=== PATIENT | male | born 1930 | race Caucasian/White ===

== ENCOUNTER 2016-08-03 09:04 | Inpatient (IN) | payer MEDICARE, BC ==
[2016-08-03] MEDS ORDERED: Sodium Chloride 0.9% 10 ML Syringe FLUSH PRN (09:48)
--- NOTE | 2016-08-03 09:55 | EDM.PDOC ---
ED HPI GENERAL MEDICAL PROBLEM - General Chief Complaint: General Stated Complaint: FALL VIA [place] Time Seen by Provider: 08/03/16 09:40 Source of Information: Reports: Family, Old Records History Limitations: Reports: Other (Dementia) - History of Present Illness INITIAL COMMENTS - FREE TEXT/NARRATIVE: 86 yo male was found on the floor today by family and EMS was called and transported. Has dementia and has been living with a sister who is now herself in the hospital. A brother is recently working on getting both of them into a [facility]. There is no known injury from ending up on the floor today, the fall was not witnessed. Brother was able to secure a [facility] bed for [place] beginning this coming Monday. Onset: Today Onset Date: 08/03/16 Duration: Other (not known) Location: Reports: Generalized (weakness) Severity: Moderate Improves with: Reports: None Worsens with: Reports: Other (time) Associated Symptoms: Reports: Confusion, Rash (redness to skin of R leg), Weakness Treatments M[employer] OR [employer] DIRECTOR: Reports: IV/IO, Other (see below) (none) - Related Data Allergies Allergy/AdvReac Type Severity Reaction Status Date / Time Sulfa (Sulfonamide Allergy Intermediate intestines Verified 08/04/15 14:30 Antibiotics) swelled and got hard as rock zocor Allergy Other Uncoded 08/03/16 09:24 Home Meds: Home Meds Aspirin 81 mg PO DAILY 11/28/12 [History] Furosemide 20 mg PO DAILY 11/28/12 [History] Isosorbide Mononitrate [Imdur] 120 mg PO DAILY 11/28/12 [History] Metoprolol Tartrate [Lopressor] 25 mg PO BID 11/28/12 [History] Niacin [Niaspan] 1,000 mg PO DAILY 11/28/12 [History] Nitroglycerin 0.4 mg PO ASDIRECTED PRN 11/28/12 [History] Pantoprazole [ProTONIX] 40 mg PO DAILY 11/28/12 [History] Folic Acid 0.4 mg PO DAILY 08/03/16 [History] Pantoprazole [ProTONIX] 40 mg PO ACBREAKFAST 08/03/16 [History] Pravastatin Sodium [Pravastatin (Pravachol)] 40 mg PO BEDTIME 08/03/16 [History] Terazosin [Hytrin] 2 mg PO BEDTIME 08/03/16 [History] Past Medical History HEENT History: Reports: Hard of Hearing, Impaired Vision, Other (See Below) Other HEENT History: oral dysphagia Cardiovascular History: Reports: Angina, CAD, Heart Failure, High Cholesterol, Hypertension Gastrointestinal History: Reports: Chronic Constipation Genitourinary History: Reports: Prostate Disorder Other Genitourinary History: frequency Musculoskeletal History: Reports: Other (See Below) Other Musculoskeletal History: arthritis, weakness of bilat legs Neurological History: Reports: Alzheimers Disease, Other (See Below) Other Neuro History: narcolepsy, spinal stenosis of lumabr spine Psychiatric History: Reports: Dementia 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 Dermatologic History: Reports: Chronic Cellulitis, Venous Stasis Dermatitis - Infectious Disease History Infectious Disease History: Reports: Chicken Pox - Past Surgical History Cardiovascular Surgical History: Reports: Carotid Stents, Coronary Artery Bypass GI Surgical History: Reports: Hernia Repair/Other Social & Family History - Tobacco Use Smoking Status *Q: Never Smoker Second Hand Smoke Exposure: No - Caffeine Use Caffeine Use: Reports: Coffee - Recreational Drug Use Recreational Drug Use: No ED ROS GENERAL - Review of Systems Review Of Systems: Unable To Obtain (due to dementia) ED EXAM, GENERAL - Physical Exam Exam: See Below Exam Limited By: No Limitations General Appearance: Alert, WD/WN, No Apparent Distress, Other (non-verbal ) Eye Exam: Bilateral Eye: EOMI, Normal Inspection, PERRL Ears: Normal External Exam, Normal Canal, Normal TMs Ear Exam: Bilateral Ear: Auricle Normal, Canal Normal, TM normal Nose: Normal Inspection, Normal Mucosa, No Blood Throat/Mouth: Normal Inspection, Normal Lips, Normal Oropharynx, Normal Voice, No Airway Compromise, Other (Teeth in very poor condition with poor hygiene) Head: Atraumatic, Normocephalic Neck: Normal Inspection, Non-Tender Respiratory/Chest: No Respiratory Distress, Lungs Clear, Normal Breath Sounds, No Accessory Muscle Use Cardiovascular: Regular Rate, Rhythm, No Edema, Systolic Murmur GI/Abdominal: Normal Bowel Sounds, Soft, Non-Tender, No Distention Back Exam: Normal Inspection Extremities: Normal Inspection, Normal Range of Motion, Non-Tender, No Pedal Edema Neurological: Alert, Oriented, CN II-XII Intact, Normal Cognition, No Motor/ Sensory Deficits Psychiatric: Normal Affect, Normal Mood Skin Exam: Warm, Dry, Intact, Erythema (to skin of R leg, increased warmth.), Increased Warmth Lymphatic: No Adenopathy Course - Vital Signs Text/Narrative:: Dr. Hickey called at 11:30 am regarding recommended admission. Last Recorded V/S: Last Vital Signs Temp 36.7 C 08/03/16 09:11 Pulse 74 08/03/16 10:32 Resp 16 08/03/16 10:32 BP 151/83 H 08/03/16 10:32 Pulse Ox 99 08/03/16 10:32 - Orders/Labs/Meds Orders: Active Orders 24 hr Category Date Time Status CULTURE BLOOD [BC] Stat Lab 08/03/16 10:45 Received CULTURE BLOOD [BC] Stat Lab 08/03/16 10:50 Received UA W/MICROSCOPIC [URIN] Stat Lab 08/03/16 09:48 Uncollected Lactated Ringers [Ringers, Lactated] 1,000 ml Med 08/03/16 10:34 Active IV BOLUS Sodium Chloride 0.9% [Saline Flush] Med 08/03/16 09:48 Active 10 ml FLUSH ASDIRECTED PRN Saline Lock Insert [OM.PC] Routine Oth 08/03/16 09:48 Ordered Medication Orders Lactated Ringer's (Ringers, Lactated) 1,000 mls @ 1,000 mls/hr IV BOLUS ONE Stop: 08/03/16 11:33 Last Admin: 08/03/16 10:39 Dose: 1,000 mls/hr Sodium Chloride (Saline Flush) 10 ml FLUSH ASDIRECTED PRN PRN Reason: Keep Vein Open Last Admin: 08/03/16 10:10 Dose: 10 ml Labs: Laboratory Tests 08/03/16 08/03/16 Range/Units 09:58 09:58 WBC 13.1 H (4.5-11.0) K/uL RBC 3.40 L (4.30-5.90) M/uL Hgb 10.0 L D (12.0-15.0) g/dL Hct 32.4 L (40.0-54.0) % MCV 95 (80-98) fL MCH 29 (27-31) pg MCHC 31 L (32-36) % Plt Count 94 L (150-400) K/uL Sodium 144 (140-148) mmol/L Potassium 4.3 (3.6-5.2) mmol/L Chloride 109 H (100-108) mmol/L Carbon Dioxide 26 (21-32) mmol/L Anion Gap 13.3 (5.0-14.0) mmol/L BUN 36 H (7-18) mg/dL Creatinine 1.6 H (0.8-1.3) mg/dL Est Cr Clr Drug Dosing 35.70 mL/min Estimated GFR (MDRD) 41 L (>60) Glucose 128 H (74-106) mg/dL Calcium 8.9 (8.5-10.1) mg/dL Total Bilirubin 0.9 (0.2-1.0) mg/dL AST 42 H (15-37) U/L ALT 33 (12-78) U/L Alkaline Phosphatase 75 (46-116) U/L Total Protein 6.7 (6.4-8.2) g/dL Albumin 2.7 L (3.4-5.0) g/dL Globulin 4.0 H (2.3-3.5) g/dL Albumin/Globulin Ratio 0.7 L (1.2-2.2) Meds: Medications Generic Name Dose Route Start Last Admin Trade Name Freq PRN Reason Stop Dose Admin Lactated Ringer's 1,000 mls @ 1,000 mls/hr 08/03/16 10:34 08/03/16 10:39 Ringers, Lactated IV 08/03/16 11:33 1,000 mls/hr BOLUS ONE Administration Sodium Chloride 10 ml 08/03/16 09:48 08/03/16 10:10 Saline Flush FLUSH 10 ml ASDIRECTED PRN Administration Keep Vein Open Discontinued Medications Generic Name Dose Route Start Last Admin Trade Name Freq PRN Reason Stop Dose Admin Doxycycline Hyclate 100 mg 08/03/16 10:51 08/03/16 11:02 Vibramycin PO 08/03/16 10:52 100 mg ONETIME ONE Administration Ceftriaxone Sodium 2 gm/ 50 mls @ 100 mls/hr 08/03/16 10:52 Sodium Chloride IV 08/03/16 11:21 ONETIME ONE Departure - Departure Time of Disposition: 11:55 Disposition: Admitted As Inpatient 65 Condition: fair Clinical Impression: Cellulitis of right leg, Mild dehydration, Weakness Dementia Qualifiers: Dementia type: unspecified type Dementia behavioral disturbance: without behavioral disturbance Qualified Code(s): F03.90 - Unspecified dementia without behavioral disturbance Anemia Qualifiers: Anemia type: unspecified type Qualified Code(s): D64.9 - Anemia, unspecified - Discharge Information Forms: ED Department Discharge - My Orders Last 24 Hours: My Active Orders 08/03/16 09:48 UA W/MICROSCOPIC [URIN] Stat Sodium Chloride 0.9% [Saline Flush] 10 ml FLUSH ASDIRECTED PRN Saline Lock Insert [OM.PC] Routine 08/03/16 10:34 Lactated Ringers [Ringers, Lactated] 1,000 ml IV BOLUS 08/03/16 10:45 CULTURE BLOOD [BC] Stat 08/03/16 10:50 CULTURE BLOOD [BC] Stat - Assessment/Plan Last 24 Hours: My Active Orders 08/03/16 09:48 UA W/MICROSCOPIC [URIN] Stat Sodium Chloride 0.9% [Saline Flush] 10 ml FLUSH ASDIRECTED PRN Saline Lock Insert [OM.PC] Routine 08/03/16 10:34 Lactated Ringers [Ringers, Lactated] 1,000 ml IV BOLUS 08/03/16 10:45 CULTURE BLOOD [BC] Stat 08/03/16 10:50 CULTURE BLOOD [BC] Stat
[2016-08-03] MEDS ORDERED: Lactated Ringers 1,000 ML IV ONE (10:34)
[2016-08-03] MEDS ORDERED: Doxycycline 100 MG Cap PO ONE (10:51)
[2016-08-03] MEDS ORDERED: cefTRIAXone 2 GM in Sodium Chloride 0.9% 50 ML IV ONE (10:52)
--- NOTE | 2016-08-03 14:56 | PCM.HP ---
H&P History of Present Illness - General Date of Service: 08/03/16 Admit Problem/Dx: Admission Diagnosis/Problem Admission Diagnosis/Problem Cellulitis Source of Information: Provider. No: Patient History Limitations: Reports: Altered Mental Status (dementia) - History of Present Illness Initial Comments - Free Text/Narative: Bill presents today after being found laying on the ground near the shower. It is unclear how long he was on the ground. He has advanced dementia and does not provide any history. No one has seen him in 24 hours other not quite sure what has happened during that time. He does not respond to any questions unable to gather any history. He does not even respond to questions about how he is doing right now such as are you having pain. His brother does report that he has not been doing well at home. He's been having difficulty with both bowel and bladder incontinence. Has not been eating well. Weakness seems to be progressing. He requires constant supervision because of his Alzheimer's dementia. Workup in the emergency room today suggested probable acute kidney injury. There is a large area of cellulitis on the right lower leg with blistering and ulceration. He is not safe for outpatient management and will need IV antibiotics and likely penitentiary placement. - Related Data Allergies/Adverse Reactions: Allergies Allergy/AdvReac Type Severity Reaction Status Date / Time Sulfa (Sulfonamide Allergy Intermediate intestines Verified 08/04/15 14:30 Antibiotics) swelled and got hard as rock zocor Allergy Other Uncoded 08/03/16 09:24 Home Medications: Home Meds Aspirin 81 mg PO DAILY 11/28/12 [History] Furosemide 20 mg PO DAILY 11/28/12 [History] Isosorbide Mononitrate [Imdur] 120 mg PO DAILY 11/28/12 [History] Metoprolol Tartrate [Lopressor] 25 mg PO BID 11/28/12 [History] Niacin [Niaspan] 1,000 mg PO DAILY 11/28/12 [History] Nitroglycerin 0.4 mg PO ASDIRECTED PRN 11/28/12 [History] Pantoprazole [ProTONIX] 40 mg PO DAILY 11/28/12 [History] Folic Acid 0.4 mg PO DAILY 08/03/16 [History] Pantoprazole [ProTONIX] 40 mg PO ACBREAKFAST 08/03/16 [History] Pravastatin Sodium [Pravastatin (Pravachol)] 40 mg PO BEDTIME 08/03/16 [History] Terazosin [Hytrin] 2 mg PO BEDTIME 08/03/16 [History] Past Medical History HEENT History: Reports: Hard of Hearing, Impaired Vision, Other (See Below) Other HEENT History: oral dysphagia Cardiovascular History: Reports: Angina, CAD, Heart Failure, High Cholesterol, Hypertension Gastrointestinal History: Reports: Chronic Constipation Genitourinary History: Reports: Prostate Disorder Other Genitourinary History: frequency Musculoskeletal History: Reports: Other (See Below) Other Musculoskeletal History: arthritis, weakness of bilat legs Neurological History: Reports: Alzheimers Disease, Other (See Below) Other Neuro History: narcolepsy, spinal stenosis of lumabr spine Psychiatric History: Reports: Dementia 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 Dermatologic History: Reports: Chronic Cellulitis, Venous Stasis Dermatitis - Infectious Disease History Infectious Disease History: Reports: Chicken Pox - Past Surgical History Cardiovascular Surgical History: Reports: Carotid Stents, Coronary Artery Bypass GI Surgical History: Reports: Hernia Repair/Other Social & Family History - Family History Family Medical History: Unobtainable (dementia) - Tobacco Use Smoking Status *Q: Never Smoker Second Hand Smoke Exposure: No - Caffeine Use Caffeine Use: Reports: Coffee - Alcohol Use Alcohol Use History: No - Recreational Drug Use Recreational Drug Use: No H&P Review of Systems - Review of Systems: Review Of Systems: Unable To Obtain (pt does not respond to any questions) Exam - Exam Exam: See Below - Vital Signs Vital Signs: Last Vital Signs Temp 36.7 C 08/03/16 09:11 Pulse 74 08/03/16 13:45 Resp 16 08/03/16 13:45 BP 154/77 H 08/03/16 13:45 Pulse Ox 99 08/03/16 13:45 Weight: 91.5 kg - Exam Quality Assessment: No: Supplemental Oxygen General: Alert, Cooperative, Mild Distress. No: Oriented HEENT: Conjunctiva Clear (on the left), Other (right eye shut 2/2 crusty drainage). No: Mucosa Moist & [place] (very dry), Scleral Icterus Neck: Trachea Midline. No: Lymphadenopathy, Thyromegaly Lungs: Clear to Auscultation, Normal Respiratory Effort Cardiovascular: Regular Rate, Regular Rhythm. No: Systolic Murmur Abdomen: Normal Bowel Sounds, Soft. No: Distention, Tenderness, Mass Back Exam: Normal Inspection. No: Paraspinal Tenderness Extremities: Edema (pitting edema right foot and ankle, mild edema left ankle). No: Normal Inspection, Cyanosis Skin: Warm, Dry, Rash (erythema right foot, ankle and distal lower leg. also area of redness and warmth just proximal to the knee medially. ) Neuro Extensive - Mental Status: Alert, Inattentive, Memory Loss-Remote Events, Memory Loss-Recent Events, Slow Response to Commands. No: Oriented x3, Normal Cognition, Memory Intact Neuro Extensive - Motor, Sensory, Reflexes: CN II-XII Intact, Tremor. No: Dysarthria, Abnormal Motor Psychiatric: Alert. No: Normal Affect (flat) - Patient Data Lab Results last 24 hrs: Laboratory Results - last 24 hr 08/03/16 08/03/16 08/03/16 Range/Units 09:58 09:58 13:46 WBC 13.1 H (4.5-11.0) K/uL RBC 3.40 L (4.30-5.90) M/uL Hgb 10.0 L D (12.0-15.0) g/dL Hct 32.4 L (40.0-54.0) % MCV 95 (80-98) fL MCH 29 (27-31) pg MCHC 31 L (32-36) % Plt Count 94 L (150-400) K/uL Sodium 144 (140-148) mmol/L Potassium 4.3 (3.6-5.2) mmol/L Chloride 109 H (100-108) mmol/L Carbon Dioxide 26 (21-32) mmol/L Anion Gap 13.3 (5.0-14.0) mmol/L BUN 36 H (7-18) mg/dL Creatinine 1.6 H (0.8-1.3) mg/dL Est Cr Clr Drug Dosing 35.70 mL/min Estimated GFR (MDRD) 41 L (>60) Glucose 128 H (74-106) mg/dL Calcium 8.9 (8.5-10.1) mg/dL Total Bilirubin 0.9 (0.2-1.0) mg/dL AST 42 H (15-37) U/L ALT 33 (12-78) U/L Alkaline Phosphatase 75 (46-116) U/L Total Protein 6.7 (6.4-8.2) g/dL Albumin 2.7 L (3.4-5.0) g/dL Globulin 4.0 H (2.3-3.5) g/dL Albumin/Globulin Ratio 0.7 L (1.2-2.2) Urine Color Yellow Urine Appearance Slightly cloudy Urine pH 5.0 (4.5-8.0) Ur Specific [place] 1.015 (1.008-1.030) Urine Protein 30 H (NEGATIVE) mg/dL Urine Glucose (UA) Normal (NEGATIVE) mg/dL Urine Ketones Negative (NEGATIVE) mg/dL Urine Occult Blood Moderate (NEGATIVE) Urine Nitrite Negative (NEGAITVE) Urine Bilirubin Small (NEGATIVE) Urine Urobilinogen 1 (NORMAL) mg/dL Ur Leukocyte Esterase Moderate (NEGATIVE) Urine RBC 5-10 H (0-5) Urine WBC 10-20 H (0-5) Ur Epithelial Cells Few Amorphous Sediment Few Urine Bacteria Moderate Urine Mucus Few Result Diagrams: 08/03/16 09:58 08/03/16 09:58 *Q Meaningful Use (ADM) - VTE *Q VTE Criteria *Q: - VTE Risk Assess *Q Each Risk Factor Represents 1 Point: Swollen Legs, Current Total Score 1 Point Risk Factors: 1 Each Risk Factor Represents 2 Points: None Total Score 2 Point Risk Factors: 0 Each Risk Factor Represents 3 Points: Age 75 Years or Greater Total Score 3 Point Risk Factors: 3 Each Risk Factor Represents 5 Points: None Total Score 5 Point Risk Factors: 0 Venous Thromboembolism Risk Factor Score *Q: 4 - Stroke *Q Stroke Criteria *Q: - AMI *Q AMI Criteria *Q: - Problem List (1) Cellulitis of right leg SNOMED Code(s): 972278272 ICD Code: L03.115 - CELLULITIS OF RIGHT LOWER LIMB Status: Acute Current Visit: Yes (2) Alzheimer's dementia without behavioral disturbance SNOMED Code(s): 10485965 ICD Code: G30.9 - ALZHEIMER'S DISEASE, UNSPECIFIED; F02.80 - DEMENTIA IN OTH DISEASES CLASSD ELSWHR W/O BEHAVRL DISTURB Status: Acute Current Visit: Yes Qualifiers: Alzheimer's disease onset: late-onset Qualified Code(s): G30.1 - Alzheimer' s disease with late onset; F02.80 - Dementia in other diseases classified elsewhere without behavioral disturbance (3) Acute on chronic renal failure SNOMED Code(s): 789123831 ICD Code: N17.9 - ACUTE KIDNEY FAILURE, UNSPECIFIED; N18.9 - CHRONIC KIDNEY DISEASE, UNSPECIFIED Status: Acute Current Visit: Yes Qualifiers: Acute renal failure type: unspecified Chronic kidney disease stage: stage 3 (moderate) Qualified Code(s): N17.9 - Acute kidney failure, unspecified; N18.3 - Chronic kidney disease, stage 3 (moderate) (4) Weakness SNOMED Code(s): 78569723 ICD Code: R53.1 - WEAKNESS Status: Acute Current Visit: Yes (5) Anemia SNOMED Code(s): 542440303 ICD Code: D64.9 - ANEMIA, UNSPECIFIED Status: Acute Current Visit: Yes Qualifiers: Anemia type: unspecified type Qualified Code(s): D64.9 - Anemia, unspecified Problem List Initiated/Reviewed/Updated: Yes Orders Last 24hrs: Active Orders 24 hr Category Date Time Status Patient Status Manage Transfer [TRANSFER] Routine ADT 08/03/16 14:43 Ordered CULTURE BLOOD [BC] Stat Lab 08/03/16 10:45 Received CULTURE BLOOD [BC] Stat Lab 08/03/16 10:50 Received CULTURE URINE [RM] Stat Lab 08/03/16 14:35 Received Sodium Chloride 0.9% [Saline Flush] Med 08/03/16 09:48 Active 10 ml FLUSH ASDIRECTED PRN Saline Lock Insert [OM.PC] Routine Oth 08/03/16 09:48 Ordered Resuscitation Status Routine Resus Stat 08/03/16 14:45 Ordered Medication Orders Sodium Chloride (Saline Flush) 10 ml FLUSH ASDIRECTED PRN PRN Reason: Keep Vein Open Last Admin: 08/03/16 10:10 Dose: 10 ml Assessment/Plan Comment:: Assessment and plan - Right lower leg cellulitis - fairly large area of cellulitis involving the right foot and lower leg. There does appear to be some extension with lymphatic distribution on the inside of the leg up to the knee and even to the groin. Unclear duration of this infection. Not currently febrile. Does not appear to be septic at this time. -IV fluids -Cefazolin -Pain control -Local wound cares -Blood cultures if he spikes a fever Acute kidney injury - Creatinine elevated above baseline. Hopefully will improve with fluids. Dehydration suspected. -IV fluids overnight and labs in the morning Alzheimer's dementia without behavioral disturbance - significant impairment in cognition. Definitely not safe for outpatient management. Requires 24-hour supervision at this point.family requesting penitentiary placement and possibly memory careonce his medical problems have resolved. -Melatonin at bedtime Anemia - exact etiology not known. Unable to obtain history of bleeding. -Labs in the morning -Iron studies Coronary artery disease - history of this. Currently on medical management. Unable to determine if he is having active symptoms. Labs are normal. -Continue medical management Maintenance issues - - DVT prophylaxis - heparin - GI prophylaxis - PPI - Nutrition - regular diet as tolerated - Self catheter - not indicated CODE STATUS - DO NOT RESUSCITATE/DO NOT INTUBATE Admission justification - This patient will be admitted for inpatient services and is medically appropriate meeting medical necessity for inpatient admission as outlined in my documentation. I reasonably expect the patient will require inpatient services that span a period time over 2 midnights. I reasonably expect this patient to be discharged or transferred within 96 hours [facility]. Disposition - anticipate discharge to the penitentiary after the hospital stay Primary care physician - Dr. Niesha Hickey M.D.
[2016-08-03] MEDS ORDERED: Polyethylene Glycol 3350 Powder 17 GM Packet PO PRN (15:47)
[2016-08-03] MEDS ORDERED: Acetaminophen 325 MG Tab PO PRN (15:47)
[2016-08-03] MEDS ORDERED: Ondansetron 4 MG Tab.DIS PO PRN (15:47)
[2016-08-03] MEDS: Sodium Chloride 0.9% 1,000 ML IV SCH (16:20)
[2016-08-03] MEDS: Heparin Sodium 5,000 Units/ML Vial SUBCUT SCH (20:04)
--- NOTE | 2016-08-03 20:31 | PCM.SN ---
- Free Text/Narrative Note: time 20:11 call from [address] [place] [address]; concerns of blood pressure 107/79 p 70 question; should give or hold Hytrin and Lopressor also Mr. Marshall has a small abrasion to his left knee, request Bacitracin ointment a; abrasion and blood pressure plan; -hold Lopressor tonight, -give Hytrin as scheduled, -order Bacitracin ointment tid to abrasion.
[2016-08-03] MEDS: Terazosin 1 MG Cap PO SCH (20:37)
[2016-08-03] MEDS: Melatonin 3 MG Tab PO SCH (20:37)
[2016-08-03] MEDS: ceFAZolin 1 GM in Premix Bag 1 BAG IV SCH (21:52)
[2016-08-03] MEDS: Bacitracin Oint 28.35 GM Tube TOP SCH (21:52)
[2016-08-04] MEDS: Sodium Chloride 0.9% 1,000 ML IV SCH ×3 (00:40→21:00)
[2016-08-04] MEDS: ceFAZolin 1 GM in Premix Bag 1 BAG IV SCH ×3 (05:20→21:52)
[2016-08-04] MEDS: Pantoprazole 40 MG Tab.CR PO SCH (08:29)
[2016-08-04] MEDS: Isosorbide Mononitrate 30 MG Tab.ER PO SCH (09:00)
[2016-08-04] MEDS: Aspirin 81 MG Tab.EC PO SCH (09:01)
[2016-08-04] MEDS: Heparin Sodium 5,000 Units/ML Vial SUBCUT SCH ×2 (09:01→20:14)
[2016-08-04] MEDS: Bacitracin Oint 28.35 GM Tube TOP SCH ×3 (10:28→20:11)
[2016-08-04] MEDS: Metoprolol Tartrate 25 MG Tab PO SCH ×2 (10:30→21:48)
--- NOTE | 2016-08-04 17:52 | PCM.PN ---
- General Info Date of Service: 08/04/16 Functional Status: Reports: pain controlled, ambulating - Review of Systems General: Reports: Weakness Systems Review Comment:: No acute events overnight. Still not talking to me this morning. Does not respond to questions such as how revealing or are you having any pain. Redness and swelling of the right foot appeared to be better today. Vital signs have been stable other than mild low blood pressure last night. - Patient Data Vitals - most recent: Last Vital Signs Temp 36.5 C 08/04/16 15:10 Pulse 82 08/04/16 15:10 Resp 16 08/04/16 15:10 BP 109/56 L 08/04/16 15:10 Pulse Ox 95 08/04/16 15:10 Weight - most recent: 86.046 kg I&O - last 24 hours: Intake & Output 08/04/16 08/04/16 08/04/16 06:59 14:59 22:59 Intake Total 1009 890 Output Total 250 200 175 Balance 759 690 -175 Lab Results last 24 hrs: Laboratory Results - last 24 hr 08/04/16 08/04/16 08/04/16 Range/Units 05:00 05:00 05:00 WBC 11.7 H (4.5-11.0) K/uL RBC 3.35 L (4.30-5.90) M/uL Hgb 9.7 L (12.0-15.0) g/dL Hct 32.0 L (40.0-54.0) % MCV 96 (80-98) fL MCH 29 (27-31) pg MCHC 30 L (32-36) % Plt Count 94 L (150-400) K/uL Sodium 143 (140-148) mmol/L Potassium 4.1 (3.6-5.2) mmol/L Chloride 111 H (100-108) mmol/L Carbon Dioxide 25 (21-32) mmol/L Anion Gap 11.1 (5.0-14.0) mmol/L BUN 33 H (7-18) mg/dL Creatinine 1.5 H (0.8-1.3) mg/dL Est Cr Clr Drug Dosing 38.08 mL/min Estimated GFR (MDRD) 44 L (>60) Glucose 128 H (74-106) mg/dL Calcium 8.4 L (8.5-10.1) mg/dL Iron 17 L (65-175) ug/dL TIBC 140 L (250-450) ug/dl % Saturation 12 L (20-55) % Ferritin (8-388) ng/ml 08/04/16 Range/Units 05:00 WBC (4.5-11.0) K/uL RBC (4.30-5.90) M/uL Hgb (12.0-15.0) g/dL Hct (40.0-54.0) % MCV (80-98) fL MCH (27-31) pg MCHC (32-36) % Plt Count (150-400) K/uL Sodium (140-148) mmol/L Potassium (3.6-5.2) mmol/L Chloride (100-108) mmol/L Carbon Dioxide (21-32) mmol/L Anion Gap (5.0-14.0) mmol/L BUN (7-18) mg/dL Creatinine (0.8-1.3) mg/dL Est Cr Clr Drug Dosing mL/min Estimated GFR (MDRD) (>60) Glucose (74-106) mg/dL Calcium (8.5-10.1) mg/dL Iron (65-175) ug/dL TIBC (250-450) ug/dl % Saturation (20-55) % Ferritin 553 H (8-388) ng/ml Med Orders - Current: Current Medications Acetaminophen (Tylenol) 650 mg PO Q4H PRN PRN Reason: Pain (Mild 1-3)/fever Aspirin (Halfprin) 81 mg PO DAILY [facility] Last Admin: 08/04/16 09:01 Dose: 81 mg Bacitracin (Bacitracin Oint) 0 gm TOP TID [facility] Last Admin: 08/04/16 13:51 Dose: 1 applic Heparin Sodium (Porcine) (Heparin Sodium) 5,000 units SUBCUT BID [facility] Last Admin: 08/04/16 09:01 Dose: 5,000 units Sodium Chloride (Normal Saline) 1,000 mls @ 100 mls/hr IV ASDIRECTED [facility] Last Admin: 08/04/16 11:01 Dose: 100 mls/hr Cefazolin Sodium/Dextrose 1 gm (/ Premix) 50 mls @ 200 mls/hr IV Q8H [facility] Last Admin: 08/04/16 14:02 Dose: 100 mls/hr Isosorbide Mononitrate (Imdur) 120 mg PO DAILY [facility] Last Admin: 08/04/16 09:00 Dose: 120 mg Melatonin (Melatonin) 9 mg PO BEDTIME [facility] Last Admin: 08/03/16 20:37 Dose: 9 mg Metoprolol Tartrate (Lopressor) 25 mg PO BID [facility] Last Admin: 08/04/16 10:30 Dose: 25 mg Ondansetron HCl (Zofran Odt) 4 mg PO Q6H PRN PRN Reason: Nausea able to take PO Pantoprazole Sodium (Protonix) 40 mg PO ACBREAKFAST [facility] Last Admin: 08/04/16 08:29 Dose: 40 mg Polyethylene Glycol (Miralax) 17 gm PO DAILY PRN PRN Reason: Constipation Senna/Docusate Sodium (Senna Plus) 1 tab PO BID PRN PRN Reason: Constipation Sodium Chloride (Saline Flush) 10 ml FLUSH ASDIRECTED PRN PRN Reason: Keep Vein Open Last Admin: 08/03/16 10:10 Dose: 10 ml Terazosin HCl (Hytrin) 2 mg PO BEDTIME [facility] Last Admin: 08/03/16 20:37 Dose: 2 mg Discontinued Medications Doxycycline Hyclate (Vibramycin) 100 mg PO ONETIME ONE Stop: 08/03/16 10:52 Last Admin: 08/03/16 11:02 Dose: 100 mg Lactated Ringer's (Ringers, Lactated) 1,000 mls @ 1,000 mls/hr IV BOLUS ONE Stop: 08/03/16 11:33 Last Admin: 08/03/16 10:39 Dose: 1,000 mls/hr Ceftriaxone Sodium 2 gm/ (Sodium Chloride) 50 mls @ 100 mls/hr IV ONETIME ONE Stop: 08/03/16 11:21 Last Admin: 08/03/16 11:41 Dose: 100 mls/hr - Exam Quality Assessment: No: supplemental oxygen General: alert, cooperative, no acute distress. No: oriented Neck: supple Lungs: Normal respiratory effort Cardiovascular: Regular Rate, Regular Rhythm Abdomen: soft, no distension Extremities: no cyanosis, edema (Any edema both ankles, right much greater than left) Skin: warm, dry, rash (Erythema and warmth over most of the right foot and distal third of the leg.) Wound/Incisions: other (Large unroofed bullae right medial ankle just proximal to the medial malleolus) Psy/Mental Status: alert. No: normal affect (Flat affect) - Problem List & Annotations (1) Cellulitis of right leg SNOMED Code(s): 261145345 Code(s): L03.115 - CELLULITIS OF RIGHT LOWER LIMB Status: Acute Current Visit: Yes (2) Alzheimer's dementia without behavioral disturbance SNOMED Code(s): 75658742 Code(s): G30.9 - ALZHEIMER'S DISEASE, UNSPECIFIED; F02.80 - DEMENTIA IN OTH DISEASES CLASSD ELSWHR W/O BEHAVRL DISTURB Status: Chronic Current Visit: Yes Qualifiers: Alzheimer's disease onset: late-onset Qualified Code(s): G30.1 - Alzheimer' s disease with late onset; F02.80 - Dementia in other diseases classified elsewhere without behavioral disturbance (3) Acute on chronic renal failure SNOMED Code(s): 882416328 Code(s): N17.9 - ACUTE KIDNEY FAILURE, UNSPECIFIED; N18.9 - CHRONIC KIDNEY DISEASE, UNSPECIFIED Status: Acute Current Visit: Yes Qualifiers: Acute renal failure type: unspecified Chronic kidney disease stage: stage 3 (moderate) Qualified Code(s): N17.9 - Acute kidney failure, unspecified; N18.3 - Chronic kidney disease, stage 3 (moderate) (4) Weakness SNOMED Code(s): 55143826 Code(s): R53.1 - WEAKNESS Status: Acute Current Visit: Yes (5) Anemia SNOMED Code(s): 541093318 Code(s): D64.9 - ANEMIA, UNSPECIFIED Status: Acute Current Visit: Yes Qualifiers: Anemia type: unspecified type Qualified Code(s): D64.9 - Anemia, unspecified - Problem List Review Problem List Initiated/Reviewed/Updated: Yes - My Orders Last 24 Hours: My Active Orders 08/03/16 21:00 Heparin Sodium 5,000 units SUBCUT BID Melatonin 9 mg PO BEDTIME 08/03/16 22:00 ceFAZolin [Ancef] 1 gm Premix Bag 1 bag IV Q8H 08/03/16 Dinner Regular Diet [DIET] 08/04/16 09:00 Aspirin [Halfprin] 81 mg PO DAILY - Plan Plan:: Assessment and plan - Right lower leg cellulitis - fairly large area of cellulitis involving the right foot and lower leg. Clinically improving. Tolerating current antibiotics. No fevers. -IV fluids -Cefazolin -Pain control -Local wound cares -Blood cultures if he spikes a fever Acute kidney injury - Creatinine is a little bit better today. -Continue gentle IV fluids overnight and repeat labs in the morning Alzheimer's dementia without behavioral disturbance - significant impairment in cognition. Definitely not safe for outpatient management. Requires 24-hour supervision at this point. jail admission planned. -Melatonin at bedtime Anemia - exact etiology not known. Labs suggest anemia of chronic disease. Hemoglobin stable. No indication for transfusion. -Labs in the morning Coronary artery disease - history of this. Currently on medical management. Unable to determine if he is having active symptoms. Labs are normal. -Continue medical management Maintenance issues - - DVT prophylaxis - heparin - GI prophylaxis - PPI - Nutrition - regular diet as tolerated Disposition - anticipate [facility] the jail after the hospital stay, hopefully tomorrow if stable overnight Primary care physician - Dr. Niesha Hickey M.D.
[2016-08-04] MEDS: Melatonin 3 MG Tab PO SCH (20:12)
[2016-08-04] MEDS: Terazosin 1 MG Cap PO SCH (21:48)
[2016-08-05] MEDS: ceFAZolin 1 GM in Premix Bag 1 BAG IV SCH (05:30)
[2016-08-05] MEDS ORDERED: Bisacodyl 10 MG Supp RECTAL ONE (06:00)
[2016-08-05] MEDS: Bacitracin Oint 28.35 GM Tube TOP SCH (08:17)
[2016-08-05] MEDS: Pantoprazole 40 MG Tab.CR PO SCH (08:18)
[2016-08-05] MEDS: Heparin Sodium 5,000 Units/ML Vial SUBCUT SCH (08:18)
[2016-08-05] MEDS: Aspirin 81 MG Tab.EC PO SCH (08:18)
[2016-08-05] MEDS: Isosorbide Mononitrate 30 MG Tab.ER PO SCH (08:34)
[2016-08-05] MEDS: Metoprolol Tartrate 25 MG Tab PO SCH (08:35)
--- NOTE | 2016-08-05 10:21 | PCM.DCSUM1 ---
Discharge Summary - Hospital Course Brief History: An 86-year-old male with history of advanced Alzheimer's dementia and coronary artery disease who presented after a fall in the shower. He was admitted for management of right lower extremity cellulitis. - Discharge Data Discharge Date: 08/05/16 Discharge Disposition: DC/Tfer to [facility] 03 Condition: Fair - Discharge Diagnosis/Problem(s) (1) Cellulitis of right leg SNOMED Code(s): 897061472 ICD Code: L03.115 - CELLULITIS OF RIGHT LOWER LIMB Status: Acute Current Visit: Yes (2) Alzheimer's dementia without behavioral disturbance SNOMED Code(s): 65229995 ICD Code: G30.9 - ALZHEIMER'S DISEASE, UNSPECIFIED; F02.80 - DEMENTIA IN OTH DISEASES CLASSD ELSWHR W/O BEHAVRL DISTURB Status: Chronic Current Visit: Yes Qualifiers: Alzheimer's disease onset: late-onset Qualified Code(s): G30.1 - Alzheimer' s disease with late onset; F02.80 - Dementia in other diseases classified elsewhere without behavioral disturbance (3) Acute on chronic renal failure SNOMED Code(s): 784723273 ICD Code: N17.9 - ACUTE KIDNEY FAILURE, UNSPECIFIED; N18.9 - CHRONIC KIDNEY DISEASE, UNSPECIFIED Status: Acute Current Visit: Yes Qualifiers: Acute renal failure type: unspecified Chronic kidney disease stage: stage 3 (moderate) Qualified Code(s): N17.9 - Acute kidney failure, unspecified; N18.3 - Chronic kidney disease, stage 3 (moderate) (4) Weakness SNOMED Code(s): 31976412 ICD Code: R53.1 - WEAKNESS Status: Acute Current Visit: Yes (5) Anemia SNOMED Code(s): 628491110 ICD Code: D64.9 - ANEMIA, UNSPECIFIED Status: Acute Current Visit: Yes Problem Details: anemia of chronic disease Qualifiers: Anemia type: other cause Other causes of anemia: chronic disease, other Qualified Code(s): D63.8 - Anemia in other chronic diseases classified elsewhere - Patient Summary/Data Consults: Consultations 08/03/16 15:47 PT Evaluation and Treatment [CONS] Routine Please Evaluate and Treat. PT Reason for Consult: Strengthening This query below is only for informational purposes and is not editable. Hospital Course: Norm presented to the emergency room after being found on the floor in the shower. It was unclear how long he was on the floor but there is no evidence for rhabdomyolysis. He was noted to have a large area of cellulitis on the right lower extremity. He was provided antibiotics and admitted to the hospital for further management. Initial antibiotic therapy included cefazolin. Local wound cares were also utilized for the unroofed bullae on the medial aspect of the right lower leg. He was also noted to have some lymphatic spread of the infection with erythema and induration just proximal to the knee as well as in the groin area. Creatinine was elevated above baseline with a baseline of stage III chronic kidney disease. He was provided IV fluids. Over the course of the next 2 days his creatinine improved some. His white blood cell count has been decreasing. Clinically his infection is improving with less erythema, induration and swelling. He does still have some erythema proximal to the knee as well as in the groin and including the right testicle but this has been improving. He has not been having any fevers. Cultures have all been negative so far. He's been eating well. Lower extremity edema is improving each day. My concern at this time is that he has advanced dementia and is not safe to take care of himself at home. His primary caregiver is also currently a skilled nursing resident. He would benefit from some assistance with wound care as well as physical therapy and occupational therapy. Given his severe dementia he may benefit from the memory care approach once his medical difficulties settled down a little bit. I think that he has improved enough to be safe for outpatient management. He will need 10 additional days of antibiotic therapy. He would benefit from both physical and occupational therapy to improve his strength and endurance. He would benefit from chcf to help manage his lower extremity wounds. - Patient Instructions Diet: Regular Diet as Tolerated (Regular geriatric diet) Activity: As Tolerated Driving: Do Not Drive Showering/Bathing: May Shower Notify Provider of: Fever, Increased Pain, Nausea and/or Vomiting Other/Special Instructions: 1. You were in the hospital for management of right lower extremity cellulitis. You have 2 open areas on the distal part of your right lower leg that will require additional superficial wound care. I recommend 10 additional days of antibiotic therapy with cephalexin which you will take 3 times daily. You should take this with food to minimize side effects with the most common side effect being gastrointestinal upset. 2. Wound care - right lower extremity - please remove the old dressings from the lower part of the right leg. Cleanse with saline as needed. Apply bacitracin to a nonadherent dressing, cover with 4 x 4's and secure with Kerlix. This dressing may be changed as needed in between if it becomes soiled. 3. Your scrotum is swollen. I recommend that you elevate your scrotum using a rolled up towel to help with the swelling. 4. Code status - DNR/DNI. 5. Referral 2 physical and occupational therapy - diagnosis generalized weakness complicated by advanced Alzheimer's dementia. Patient would benefit from strengthening. 6. Please seek medical attention if you have fever greater than 101, worsening of your leg pain or swelling or severe diarrhea. - Discharge Plan Prescriptions/Med Rec: Acetaminophen [Tylenol] 650 mg PO Q4H PRN #100 tablet PRN Reason: Pain/Fever Bacitracin [Bacitracin Oint] 1 g TOP BID #2 tube Cephalexin [Keflex] 500 mg PO TID #30 cap Melatonin 9 mg PO BEDTIME #90 tablet Home Medications: Home Meds Aspirin 81 mg PO DAILY 11/28/12 [History] Furosemide 20 mg PO DAILY 11/28/12 [History] Isosorbide Mononitrate [Imdur] 120 mg PO DAILY 11/28/12 [History] Metoprolol Tartrate [Lopressor] 25 mg PO BID 11/28/12 [History] Niacin [Niaspan] 1,000 mg PO DAILY 11/28/12 [History] Nitroglycerin 0.4 mg PO ASDIRECTED PRN 11/28/12 [History] Pantoprazole [ProTONIX] 40 mg PO DAILY 11/28/12 [History] Folic Acid 0.4 mg PO DAILY 08/03/16 [History] Pravastatin Sodium [Pravastatin (Pravachol)] 40 mg PO BEDTIME 08/03/16 [History] Terazosin [Hytrin] 2 mg PO BEDTIME 08/03/16 [History] Acetaminophen [Tylenol] 650 mg PO Q4H PRN #100 tablet 08/05/16 [Rx] Bacitracin [Bacitracin Oint] 1 g TOP BID #2 tube 08/05/16 [Rx] Cephalexin [Keflex] 500 mg PO TID #30 cap 08/05/16 [Rx] Melatonin 9 mg PO BEDTIME #90 tablet 08/05/16 [Rx] Patient Handouts: Cellulitis, Adult, Cephalexin tablets or capsules Referrals: Jc Scherer MD [Primary Care Provider] - (followup as needed after the hospital stay) - Discharge Summary/Plan Comment DC Time >30 min.: Yes (45 - new NH discharge ) - Patient Data Vitals - Most Recent: Last Vital Signs Temp 36.9 C 08/05/16 08:32 Pulse 85 08/05/16 08:35 Resp 16 08/05/16 08:32 BP 139/85 08/05/16 08:35 Pulse Ox 96 08/05/16 08:32 Weight - Most Recent: 86.046 kg I&O - Last 24 hours: Intake & Output 08/04/16 08/05/16 08/05/16 22:59 06:59 14:59 Intake Total 1598 1123 Output Total 500 50 Balance 1098 1073 Med Orders - Current: Current Medications Acetaminophen (Tylenol) 650 mg PO Q4H PRN PRN Reason: Pain (Mild 1-3)/fever Aspirin (Halfprin) 81 mg PO DAILY [facility] Last Admin: 08/05/16 08:18 Dose: 81 mg Bacitracin (Bacitracin Oint) 0 gm TOP TID [facility] Last Admin: 08/05/16 08:17 Dose: 1 applic Heparin Sodium (Porcine) (Heparin Sodium) 5,000 units SUBCUT BID [facility] Last Admin: 08/05/16 08:18 Dose: 5,000 units Sodium Chloride (Normal Saline) 1,000 mls @ 100 mls/hr IV ASDIRECTED [facility] Last Admin: 08/04/16 21:00 Dose: 100 mls/hr Cefazolin Sodium/Dextrose 1 gm (/ Premix) 50 mls @ 200 mls/hr IV Q8H [facility] Last Admin: 08/05/16 05:30 Dose: 200 mls/hr Isosorbide Mononitrate (Imdur) 120 mg PO DAILY [facility] Last Admin: 08/05/16 08:34 Dose: 120 mg Melatonin (Melatonin) 9 mg PO BEDTIME [facility] Last Admin: 08/04/16 20:12 Dose: 9 mg Metoprolol Tartrate (Lopressor) 25 mg PO BID [facility] Last Admin: 08/05/16 08:35 Dose: 25 mg Ondansetron HCl (Zofran Odt) 4 mg PO Q6H PRN PRN Reason: Nausea able to take PO Pantoprazole Sodium (Protonix) 40 mg PO ACBREAKFAST [facility] Last Admin: 08/05/16 08:18 Dose: 40 mg Polyethylene Glycol (Miralax) 17 gm PO DAILY PRN PRN Reason: Constipation Senna/Docusate Sodium (Senna Plus) 1 tab PO BID PRN PRN Reason: Constipation Last Admin: 08/04/16 20:58 Dose: 1 tab Sodium Chloride (Saline Flush) 10 ml FLUSH ASDIRECTED PRN PRN Reason: Keep Vein Open Last Admin: 08/03/16 10:10 Dose: 10 ml Terazosin HCl (Hytrin) 2 mg PO BEDTIME [facility] Last Admin: 08/04/16 21:48 Dose: 2 mg Discontinued Medications Bisacodyl (Dulcolax) 10 mg RECTAL ONETIME ONE Stop: 08/05/16 06:01 Last Admin: 08/05/16 05:31 Dose: 10 mg Doxycycline Hyclate (Vibramycin) 100 mg PO ONETIME ONE Stop: 08/03/16 10:52 Last Admin: 08/03/16 11:02 Dose: 100 mg Lactated Ringer's (Ringers, Lactated) 1,000 mls @ 1,000 mls/hr IV BOLUS ONE Stop: 08/03/16 11:33 Last Admin: 08/03/16 10:39 Dose: 1,000 mls/hr Ceftriaxone Sodium 2 gm/ (Sodium Chloride) 50 mls @ 100 mls/hr IV ONETIME ONE Stop: 08/03/16 11:21 Last Admin: 08/03/16 11:41 Dose: 100 mls/hr - Exam General: Reports: alert, cooperative, no acute distress, other (very hard of hearing). Denies: oriented HEENT: Reports: Pupils equal Neck: Reports: supple Lungs: Reports: Normal respiratory effort Cardiovascular: Reports: Regular Rate, Regular Rhythm Abdomen: Reports: soft, no tenderness, no distension (Male) Exam: Scrotal Swelling, Testicular Tenderness (R) Back Exam: Reports: Normal Inspection, Full Range of Motion Extremities: Reports: no cyanosis, edema (mild edema left ankle, moderate edema of the right ankle.) Skin: Reports: warm, dry, rash (erythema and mild warmth of right medial ankle. There is unroofed bullae but no active draining), other (erythema and mild induration just proximal to the knee on the medial aspect of the leg.) Psy/Mental Status: Reports: alert. Denies: normal affect (flat) *Q Meaningful Use (DIS) - VTE *Q VTE Criteria *Q: - Stroke *Q Stroke Criteria *Q: - AMI *Q AMI Criteria *Q:
[2016-08-05 11:52] VITALS: BP 103/53
== END 2016-08-05 12:14 | DRG 603 ==
LOC: JP.ED 09:04 → JP.MS 14:43
PROVIDERS: ADMIT Internal Medicine; ATTEND Internal Medicine
DX: L03.115 Cellulitis of right lower limb (principal); I13.0 Hypertensive heart and chronic kidney disease with heart failure and stage 1 through stage 4 chronic kidney disease, or unspecified chronic kidney disease; N17.9 Acute kidney failure, unspecified; E86.0 Dehydration; G30.9 Alzheimer's disease, unspecified; F02.80 Dementia in other diseases classified elsewhere, unspecified severity, without behavioral disturbance, psychotic disturbance, mood disturbance, and anxiety; I50.9 Heart failure, unspecified; R53.1 Weakness; D64.9 Anemia, unspecified; N18.3 Chronic kidney disease, stage 3 (moderate); Z66 Do not resuscitate; W18.39XA Other fall on same level, initial encounter; Y93.E1 Activity, personal bathing and showering; Y92.002 Bathroom of unspecified non-institutional (private) residence as the place of occurrence of the external cause; E78.00 Pure hypercholesterolemia, unspecified; M19.90 Unspecified osteoarthritis, unspecified site; I25.119 Atherosclerotic heart disease of native coronary artery with unspecified angina pectoris; Z85.6 Personal history of leukemia; Z85.89 Personal history of malignant neoplasm of other organs and systems; Z95.1 Presence of aortocoronary bypass graft; H54.7 Unspecified visual loss; H91.90 Unspecified hearing loss, unspecified ear; Z79.82 Long term (current) use of aspirin; Z88.2 Allergy status to sulfonamides; Z88.8 Allergy status to other drugs, medicaments and biological substances
CPT/HCPCS: 36415; 80053; 81001; 85027; 87040 ×2; 87086; 96361; 96365; 99284; A9270; J0696; J7050 ×2; J7120; 80048; 82728; 83550; 97162-GP; 99285; J0690; J1644; J7040